=== PATIENT | male | born 1990 | race Caucasian/White ===

== ENCOUNTER 2020-01-05 16:58 | Emergency (ER) | payer OTHER ==
[2020-01-05 17:25] VITALS: TEMP 98.1
[2020-01-05 18:23] VITALS: BP 130/81; PULSE 74; RESP 15
--- NOTE | 2020-01-05 18:39 | ED ---
General Adult HPI - General Chief complaint: Recheck/Abnormal Lab/Rx Stated complaint: med refill Time Seen by Provider: 01/05/20 18:14 Source: patient, RN notes reviewed, old records reviewed Mode of arrival: ambulatory Limitations: no limitations - History of Present Illness Initial comments: 29-year-old male patient presents to emergency department for chief complaint of medication refill. Patient reports that he is on Wellbutrin SR 150 mg for depression. Reports that he has been taking his medication regularly for the last 9 months. Patient reports that he is currently in the process of changing insurances for his job and he is unable to see his primary care provider. Reports that he has 1 pill left. Denies any suicidal or homicidal ideations. Denies any physical complaints. Systemic: Pt denies fatigue, fever/chills, rash. Pt denies weakness, night sweats, weight loss. Neuro: Pt denies headache, visual disturbances, syncope or pre-syncope. HEENT: Pt denies ocular discharge or irritation, otalgia, rhinorrhea, pharyngitis or notable lymphadenopathy. Cardiopulmonary: Pt denies chest pain, SOB, heart palpitations, dyspnea on exertion. Abdominal/GI: Pt denies abdominal pain, n/v/d. : Pt denies dysuria, burning w/ urination, frequency/urgency. Denies new onset urinary or bowel incontinence. MSK: Pt denies myalgia, loss of strength or function in extremities. Neuro: Pt denies new onset weakness, paresthesias. - Related Data Previous Rx's Medication Instructions Recorded buPROPion HCL [Wellbutrin SR] 150 mg PO Q24HR 30 Days #30 tab 01/05/20 Allergies Allergy/AdvReac Type Severity Reaction Status Date / Time azithromycin [From Zithromax] Allergy Vomiting Verified 01/05/20 17:26 doxycycline Allergy Rash/Hives Verified 01/05/20 17:26 Review of Systems ROS Statement: Those systems with pertinent positive or pertinent negative responses have been documented in the HPI. ROS Other: All systems not noted in ROS Statement are negative. Past Medical History Past Medical History: No Reported History History of Any Multi-Drug Resistant Organisms: None Reported Past Surgical History: Tonsillectomy Past Psychological History: Anxiety, Depression Smoking Status: Never smoker Past Alcohol Use History: None Reported Past Drug Use History: None Reported General Exam - General Exam Comments Initial Comments: Constitutional: NAD, AOX3, Pt has pleasant affect. HEENT: NC/AT, trachea midline, neck supple, no lymphadenopathy. Posterior pharynx non erythematous, without exudates. External ears appear normal, without discharge. Mucous membranes moist. Eyes PERRLA, EOM intact. There is no scleral icterus. No pallor noted. Cardiopulmonary: RRR, no murmurs, rubs or gallops, no JVD noted. Lungs CTAB in anterior and posterior armendariz. No peripheral edema. Abdominal exam: Abdomen soft and non-distended. Abdomen non-tender to palpation in all 4 quadrants. Bowel sounds active in LLQ. No hepatosplenomegaly. No ecchymosis Neuro: CN II-XII grossly intact. No nuchal rigidity. No raccon eyes, no gay sign. MSK: No posterior calf tenderness bilaterally, homans sign negative bilaterally. Posterior tibialis and radial pulse +2 bilaterally. Sensation intact in upper and lower extremities. Full active ROM in upper and lower extremities, 5/5 stregnth. Limitations: no limitations Course Vital Signs 01/05/20 01/05/20 17:23 18:19 Temperature 98.1 F Pulse Rate 83 74 Respiratory 20 15 Rate Blood Pressure 136/78 130/81 O2 Sat by Pulse 99 97 Oximetry Medical Decision Making - Medical Decision Making 29-year-old male patient sent to ED for medication refill. Patient also and are stable, afebrile. Physical exam did not display acute pathology. Patient does have medication bottle with his person. 150 mg Wellbutrin. This was refilled for patient. Denies any suicidal homicidal ideations. He'll be discharged he'll follow-up with his primary care provider will return to ER if condition worsens. Case discussed with Dr. Singh Disposition Clinical Impression: Encounter for medication refill Disposition: HOME SELF-CARE Condition: Stable Instructions (If sedation given, give patient instructions): Depression (ED) Additional Instructions: Follow-up with primary care provider tomorrow. Return to ER if condition worsens in any way. Prescriptions: buPROPion HCL [Wellbutrin SR] 150 mg PO Q24HR 30 Days #30 tab Is patient prescribed a controlled substance at d/c from ED?: No Referrals: Carlie Zambrano MD [Primary Care Provider] - 1-2 days
== END 2020-01-05 18:52 | disposition home or self-care (01) ==
LOC: EC 16:58
DX: Z76.0 Encounter for issue of repeat prescription (principal); F32.9 Major depressive disorder, single episode, unspecified; Z88.1 Allergy status to other antibiotic agents; Z88.8 Allergy status to other drugs, medicaments and biological substances
CPT/HCPCS: 99282

== ENCOUNTER → 2020-06-09 | Outpatient (CLI) | payer BC | END | disposition home or self-care (01) | LOC: LABWHC1 09:24 | PROVIDERS: ATTEND Emergency Medicine | DX: Z20.828 Contact with and (suspected) exposure to other viral communicable diseases (principal) | CPT/HCPCS: U0003; C9803 ==